=== PATIENT | female | born 1975 | race Caucasian/White ===

== ENCOUNTER 2022-03-20 13:40 | Emergency (ER) | payer MEDICARE, MEDICAID, SELFPAY ==
[2022-03-20 13:48] VITALS: BP 99/73; PULSE 82; RESP 16; TEMP 36.9; O2SAT 100
--- NOTE | 2022-03-20 14:49 | ED.GENADULT ---
HPI - General Adult General Chief complaint: Dental/Oral Stated complaint: Ear Pain/Toothache Source: patient Mode of arrival: ambulatory Limitations: no limitations History of Present Illness HPI narrative: Patient presents for evaluation of left lower dental pain in left ear pain. Dental pain started yesterday. She has known dental fractures in the affected area. She now reports swelling in the gum line. She has planned dental extractions for tomorrow. Left sided ear pain started today. She had similar symptoms on the right two weeks ago. She was given amoxicillin she indicates her pain resolved with medication. She now reports 8/10 dental pain. She has been taking hydrocodone for her pain. She is wondering whether she can proceed with her dental extraction. She has a hx of SLE. No additional complaints or concerns. Related Data Home Medications Medication Instructions Recorded Confirmed hydrocodone 10 mg-acetaminophen 1 tablet PO BID 01/22/19 01/22/19 300 mg tablet Allergies Allergy/AdvReac Type Severity Reaction Status Date / Time adalimumab Allergy Unknown Rash Verified 01/22/19 10:04 azithromycin Allergy Unknown Rash Verified 03/20/22 14:40 prednisone Allergy Unknown Rash Verified 03/20/22 14:40 pregabalin Allergy Unknown Rash Verified 03/20/22 14:40 Bananas and green Allergy Mild Rash Uncoded 03/20/22 14:40 peppers-throat swells Review of Systems Review of Systems: CONSTITUTIONAL: Denies fever, chills, or sweats. EYES: Denies visual changes, redness, or discharge. ENT: Reports left sided ear pain and left lower dental pain. Denies rhinorrhea, congestion, or sore throat CARDIOVASCULAR: Denies chest pain, palpitations, or edema. RESPIRATORY: Denies cough or dyspnea. GASTROINTESTINAL: Denies abdominal pain, nausea, vomiting, or diarrhea. GENITOURINARY: Denies dysuria or hematuria. SKIN: Denies rash or itching. MUSCULOSKELETAL: Denies back pain, joint pain, or myalgia. NEUROLOGIC: Denies headache, numbness, dizziness, or weakness. PSYCHIATRIC: Denies anxiety or depression. 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 Lupus Migraines Muscle degeneration Ovarian cyst Peripheral neuropathy Ulcer Urinary tract infection Uterine prolapse Surgical History Surgical History H/O breast augmentation H/O: hysterectomy History of orthopedic surgery Right knee surgery Family History Family History Mother Family history non-contributory Social History Social History Smoking packs per day: 1 Smoking cigarettes per day: 20.0 Smoking status: Current every day smoker Alcohol intake: never Substance use: never Gender identity (if verbalized by the patient): Female Spiritual care concerns: No Exam Narrative: GENERAL: Well-appearing, well-nourished, and in no acute distress. HEAD: Normocephalic, atraumatic. EYES: PERRLA and EOMI. ENT: Nares clear, no rhinorrhea or epistaxis. Mucous membranes moist. Tooth 18, 19, 20 oral fracture eroded to the gumline. Overall poor dentition. No visible or palpable dental abscess.. Bilateral TMs pearly mix nonbulging NECK: Supple. No adenopathy or masses. No carotid bruits or JVD CHEST: Clear to auscultation. No respiratory distress. No wheezes rales or rhonchi HEART: Regular rate and rhythm. No murmur heard. Normal peripheral pulses. ABDOMEN: Soft, nontender, nondistended, normal active bowel sounds. EXTREMITIES: Normal range of motion. No edema. SKIN: Warm, dry, no rash. NEURO: No focal deficits. Alert and oriented x3. PSYCH: Normal mood and affect. Course Course Emergency Course: This is a 46-year-ol
== END 2022-03-20 14:35 | disposition home or self-care (01) ==
PROVIDERS: Emergency Provider Nurse Practitioner; PCP Internal Medicine
DX: S02.5XXA Fracture of tooth (traumatic), initial encounter for closed fracture (principal); X58.XXXA Exposure to other specified factors, initial encounter; M62.89 Other specified disorders of muscle; G62.9 Polyneuropathy, unspecified; F17.210 Nicotine dependence, cigarettes, uncomplicated
CPT/HCPCS: 99203; G0463

== ENCOUNTER 2024-01-30 09:27 | Emergency (ER) | payer MEDICARE, MEDICAID, SELFPAY ==
[2024-01-30 09:40] VITALS: BP 113/75; PULSE 80; RESP 17; TEMP 37.1; O2SAT 100
--- NOTE | 2024-01-30 10:28 | ED.GENADULT ---
HPI - General Adult General Chief complaint: Dental/Oral Stated complaint: Toothache Source: patient Mode of arrival: ambulatory Limitations: no limitations History of Present Illness HPI narrative: Patient presents for evaluation of left lower dental pain. Pain started yesterday. She has known dental fractures in the affected area. She has SLE and states she has experienced several dental fractures as a result of that condition. She takes hydrocodone for chronic pain. Her current pain level is 5/10. She was undergoing dental extractions but it sounds like her dentist is no longer with that practice. She smokes 1 ppd. No fever, chills, nausea or vomiting. Related Data Home Medications ?Medication ?Instructions ?Recorded ?Confirmed ?Last Taken ?Type hydrocodone 10 mg-acetaminophen 1 tablet PO BID 01/22/19 03/20/22 Unknown History 300 mg tablet Allergies Allergy/AdvReac Type Severity Reaction Status Date / Time adalimumab Allergy Unknown Rash Verified 01/22/19 10:04 azithromycin Allergy Unknown Rash Verified 03/20/22 14:40 prednisone Allergy Unknown Rash Verified 03/20/22 14:40 pregabalin Allergy Unknown Rash Verified 03/20/22 14:40 tramadol Allergy Unknown Unknown Verified 01/30/24 09:37 Bananas and green Allergy Mild Rash Uncoded 03/20/22 14:40 peppers-throat swells Review of Systems Review of Systems: CONSTITUTIONAL: Denies fever, chills, or sweats. EYES: Denies visual changes, redness, or discharge. ENT: Reports left side lower dental pain. Denies rhinorrhea, congestion, or sore throat CARDIOVASCULAR: Denies chest pain, palpitations, or edema. RESPIRATORY: Denies cough or dyspnea. GASTROINTESTINAL: Denies abdominal pain, nausea, vomiting, or diarrhea. GENITOURINARY: Denies dysuria or hematuria. SKIN: Denies rash or itching. MUSCULOSKELETAL: Denies back pain, joint pain, or myalgia. NEUROLOGIC: Denies headache, numbness, dizziness, or weakness. PSYCHIATRIC: Denies anxiety or depression. 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 Lupus Ovarian cyst Uterine prolapse Ulcer Constipation Peripheral neuropathy Migraines Surgical History Surgical History History of orthopedic surgery Right knee surgery H/O: hysterectomy H/O breast augmentation Family History Family History Mother Family history non-contributory Social History Social History Smoking packs per day: 1 Smoking cigarettes per day: 20.0 Smoking status: Current every day smoker Alcohol intake: never Substance use: never Gender identity (if verbalized by the patient): Female Spiritual care concerns: No Exam Narrative: GENERAL: Well-appearing, well-nourished, and in no acute distress. HEAD: Normocephalic, atraumatic. EYES: PERRLA and EOMI. ENT: Nares clear, no rhinorrhea or epistaxis. Mucous membranes moist. Tooth 18, 19, 20 oral fracture eroded to the gumline. Overall poor dentition. No visible or palpable dental abscess.. Bilateral TMs pearly mix nonbulging NECK: Supple. No adenopathy or masses. No carotid bruits or JVD CHEST: Clear to auscultation. No respiratory distress. No wheezes rales or rhonchi HEART: Regular rate and rhythm. No murmur heard. Normal peripheral pulses. ABDOMEN: Soft, nontender, nondistended, normal active bowel sounds. EXTREMITIES: Normal range of motion. No edema. SKIN: Warm, dry, no rash. NEURO: No focal deficits. Alert and oriented x3. PSYCH: Normal mood and affect. Course Course Emergency Course: This is a 48-year-old female who presented for evaluation of left lower dental pain. She has evidence of dental fracture. Will discharge with penicillin. Continue hydrocodone for pain. Follow-up with dentist tomorrow. Go to the ER for systemic signs of infection. Advised to call her insurance to find an in-network dentist. Patient in agreement with plan of care. Level of Care: Express Care Visit Vital Signs Vital signs: Vital Signs Temperature 37.1 C 01/30/24 09:40 Pulse Rate 80 01/30/24 09:40 Respiratory Rate 17 01/30/24 09:40 Blood Pressure 113/75 01/30/24 09:40 Pulse Oximetry 100 01/30/24 09:40 Temperature 37.1 C 01/30/24 09:40 Pulse Rate 80 01/30/24 09:40 Respiratory Rate 17 01/30/24 09:40 Blood Pressure 113/75 01/30/24 09:40 Pulse Oximetry 100 01/30/24 09:40 Medical Decision Making Vital Signs Vital Signs: Vital Signs Temperature 37.1 C 01/30/24 09:40 Pulse Rate 80 01/30/24 09:40 Respiratory Rate 17 01/30/24 09:40 Blood Pressure 113/75 01/30/24 09:40 Pulse Oximetry 100 01/30/24 09:40 Temperature 37.1 C 01/30/24 09:40 Pulse Rate 80 01/30/24 09:40 Respiratory Rate 17 01/30/24 09:40 Blood Pressure 113/75 01/30/24 09:40 Pulse Oximetry 100 01/30/24 09:40 Discharge Plan Discharge Clinical Impression: Fracture of tooth Patient Disposition: Home, Self-Care Condition: Stable Instructions: Antibiotic Form, Toothache (ED) Patient Language: Khmer Prescriptions: New penicillin V potassium 500 mg tablet 500 mg PO Q6H 10 Days Qty: 40 0RF No Action hydrocodone-acetaminophen 10-300 mg Tablet 1 tablet PO BID penicillin V potassium 500 mg tablet 500 mg PO Q6H 10 Days Qty: 40 0RF Follow-up/Referrals: Keyonna,Robert Edwards MD [Primary Care Provider] - Time of Disposition: 10:27
== END 2024-01-30 10:31 | disposition home or self-care (01) ==
PROVIDERS: Emergency Provider Nurse Practitioner; PCP Internal Medicine
DX: S02.5XXA Fracture of tooth (traumatic), initial encounter for closed fracture (principal); F17.210 Nicotine dependence, cigarettes, uncomplicated; Z79.891 Long term (current) use of opiate analgesic; X58.XXXA Exposure to other specified factors, initial encounter
CPT/HCPCS: 99213; G0463